=== PATIENT | female | born 1965 | race Caucasian/White ===

== ENCOUNTER 2017-05-04 13:25 | Emergency (ER) | payer OTHER ==
[2017-05-04] MEDS ORDERED: Aspirin Low Dose CHEW TAB* 81 MG PO ONE (14:44)
[2017-05-04 15:07] LABS: Hematocrit 39 % (35-47); Hemoglobin 13.5 g/dl (12.0-16.0); Mean Corpuscular HGB Conc 34 g/dl (31-36); Mean Corpuscular Hemoglobin 31 pg (27-31); Mean Corpuscular Volume 90 fL (80-97); Mean Platelet Volume 9 um3 (7.4-10.4); Red Blood Count 4.37 10^6/ul (4.0-5.4); Red Cell Distribution Width 13 % (10.5-15); White Blood Count 6.5 10^3/ul (3.5-10.8)
--- NOTE | 2017-05-04 15:07 | RAD ---
HISTORY: Chest pain COMPARISONS: None VIEWS: 1: frontal portable view of the chest at 2:50 PM FINDINGS: LINES AND TUBES: None. CARDIOMEDIASTINAL SILHOUETTE: The cardiomediastinal silhouette is normal for portable technique. PLEURA: The costophrenic angles are sharp. No pleural abnormalities are noted. LUNG PARENCHYMA: The lungs are clear. ABDOMEN: The upper abdomen is clear. There is no subphrenic gas. BONES AND SOFT TISSUES: No bone or soft tissue abnormalities are noted. IMPRESSION: NO ACTIVE CARDIOPULMONARY DISEASE.
[2017-05-04 15:28] LABS: Albumin 4.1 g/dL (3.2-5.2); BUN/Creatinine Ratio 13.8 (8-20); Calcium 8.9 mg/dL (8.6-10.3); EGFR Non-African American 76.2 (>60); Globulin 2.8 g/dL (2-4); Potassium 3.4 mmol/L (3.5-5.0); Total Bilirubin 0.8 mg/dL (0.2-1.0); Total Protein 6.9 g/dL (6.4-8.9)
[2017-05-04 15:57] LABS: T4 6.19 mcg/mL (6.09-12.23)
[2017-05-04 16:02] LABS: TSH (Thyroid Stimulating Horm) 2.5 mcIU/mL (0.34-5.60)
[2017-05-04 17:37] VITALS: BP 128/75
--- NOTE | 2017-05-05 02:18 | ED ---
Dora Pope Edward, scribed for Barbara Egan MD on 05/04/17 at 1336 . HPI Chest Pain - HPI Summary HPI Summary: 51 y/o female presents to the ED c/o CP described as a dull chest pressure starting as an intermittent CP a couple of weeks ago that became constant yesterday in the morning after waking up. The pressure is described as a dull weight on her chest. It is located in the mid-sternal region. Denies diaphoresis , N/V, pain in calves. Former smoker. Pt report recent stress at work. PMHx no HTN, no DM, no blood clots, no CA. FHx mother HTN, oldest brother had a valve replacement, father had a valve replacement and a pacemaker. PCP Dr. Fine. Sx hysterectomy 2 years ago and lumpectomy. NKDA. No medications. - History of Current Complaint Chief Complaint: EDChestPainROMI Hx Obtained From: Patient Onset/Duration: Started Weeks Ago, Worse Since - yesterday morning Timing: Constant - became constant yesterday morning, Intermittent Initial Severity: Moderate Current Severity: Moderate Pain Intensity: 4 Pain Scale Used: 0-10 Numeric Chest Pain Location: Mid Sternal Character: Dull/Aching, Pressure/Squeezing Aggravating Factor(s): Nothing Alleviating Factor(s): Nothing Associated Signs and Symptoms: Positive: Chest Pain, Shortness of Breath. Negative: Diaphoresis, Nausea, Vomiting - Allergy/Home Medications Allergies/Adverse Reactions: Allergies Allergy/AdvReac Type Severity Reaction Status Date / Time No Known Allergies Allergy Verified 03/01/14 08:20 PMH/Surg Hx/FS Hx/Imm Hx Previously Healthy: No Endocrine/Hematology History: Denies: Hx Bone Marrow Disease, Hx Diabetes, Hx Sickle Cell Disease, Hx Anemia Cardiovascular History: Denies: Hx Hypertension, Hx Pacemaker/ICD History: Denies: Hx Dialysis, Hx Renal Disease Sensory History: Reports: Hx Contacts or Glasses - WEARS CONTACTS, WILL WEAR GLASSES DOS Denies: Hx Cataracts, Hx Glaucoma, Hx Hearing Aid Opthamlomology History: Reports: Hx Contacts or Glasses - WEARS CONTACTS, WILL WEAR GLASSES DOS Denies: Hx Cataracts, Hx Glaucoma Psychiatric History: Denies: Hx Panic Disorder - Cancer History Hx Chemotherapy: No Hx Radiation Therapy: No - Surgical History Surgery Procedure, Year, and Place: 2011 LEFT LUMPECTOMY[place] [facility] [place] HYSTERECTOMY 2 YEARS AGO Hx Anesthesia Reactions: No Infectious Disease History: No Infectious Disease History: Denies: Traveled Outside the [place] in Last 30 Days - Family History Known Family History: Positive: Hypertension - Mother, Other - Brother - valve replacement, father - valve replacement and pacemaker - Social History Occupation: Employed Full-time Alcohol Use: Weekly Alcohol Amount: LESS THAN 7 BEERS /WEEK Substance Use Type: Reports: None Hx Tobacco Use: Yes Smoking Status (MU): Former Smoker Amount Used/How Often: 1/2 PPD FOR 15 YRS Length of Time of Smoking/Using Tobacco: 15 YRS Have You Smoked in the Last Year: No Review of Systems Constitutional: Negative Eyes: Negative ENT: Negative Positive: Chest Pain Positive: Shortness Of Breath Gastrointestinal: Negative Genitourinary: Negative Musculoskeletal: Negative Skin: Negative Neurological: Negative Psychological: Normal All Other Systems Reviewed And Are Negative: Yes Physical Exam - Summary Physical Exam Summary: Appearance: Well-appearing, no pain distress, Well-nourished Skin: Warm, color reflects adequate perfusion Head: Normal Head/Face Eyes: Conjunctiva clear ENT: Normal Neck: Supple Respiratory: Lungs clear, Normal breath sounds, no respiratory distress Cardio: RRR, No murmur, pulses normal, brisk capillary refill Abdomen: soft, nontender Bowel sounds: present Musculoskeletal: Strength Intact/ ROM intact Neuro: Alert, muscle tone normal, facial symmetry, speech normal, sensory/motor intact Triage Information Reviewed: Yes Vital Signs On Initial Exam: Initial Vitals Temp Pulse Resp BP Pulse Ox 99.1 F 71 19 157/89 100 05/04/17 13:28 05/04/17 13:28 05/04/17 13:28 05/04/17 13:28 05/04/17 13:28 Vital Signs Reviewed: Yes Diagnostics - Vital Signs Vital Signs Temp Pulse Resp BP Pulse Ox 05/04/17 13:28 99.1 F 71 19 157/89 100 - Laboratory Lab Results: Lab Results 05/04/17 05/04/17 05/04/17 Range/Units 14:58 14:58 14:58 WBC (3.5-10.8) 10^3/ul RBC (4.0-5.4) 10^6/ul Hgb (12.0-16.0) g/dl Hct (35-47) % MCV (80-97) fL MCH (27-31) pg MCHC (31-36) g/dl RDW (10.5-15) % Plt Count (150-450) 10^3/ul MPV (7.4-10.4) um3 Neut % (Auto) (38-83) % Lymph % (Auto) (25-47) % Dolores % (Auto) (1-9) % Eos % (Auto) (0-6) % Baso % (Auto) (0-2) % Absolute Neuts (auto) (1.5-7.7) 10^3/ul Absolute Lymphs (auto) (1.0-4.8) 10^3/ul Absolute Monos (auto) (0-0.8) 10^3/ul Absolute Eos (auto) (0-0.6) 10^3/ul Absolute Basos (auto) (0-0.2) 10^3/ul Absolute Nucleated RBC 10^3/ul Nucleated RBC % INR (Anticoag Therapy) 0.95 (0.89-1.11) D-Dimer, Quantitative < 200 (Less Than 230) ng/mL Sodium 140 (133-145) mmol/L Potassium 3.4 L (3.5-5.0) mmol/L Chloride 105 (101-111) mmol/L Carbon Dioxide 28 (22-32) mmol/L Anion Gap 7 (2-11) mmol/L BUN 11 (6-24) mg/dL Creatinine 0.80 (0.51-0.95) mg/dL Est GFR ( Amer) 98.0 (>60) Est GFR (Non-Af Amer) 76.2 (>60) BUN/Creatinine Ratio 13.8 (8-20) Glucose 83 (70-100) mg/dL Lactic Acid (0.5-2.0) mmol/L Calcium 8.9 (8.6-10.3) mg/dL Magnesium 2.0 (1.9-2.7) mg/dL Total Bilirubin 0.80 (0.2-1.0) mg/dL AST 15 (13-39) U/L ALT 10 (7-52) U/L Alkaline Phosphatase 40 (34-104) U/L Total Creatine Kinase 83 (10-223) U/L CK-MB (CK-2) 1.6 (0.6-6.3) ng/mL Troponin I 0.00 (<0.04) ng/mL B-Natriuretic Peptide 38 ( - 100) pg/mL Total Protein 6.9 (6.4-8.9) g/dL Albumin 4.1 (3.2-5.2) g/dL Globulin 2.8 (2-4) g/dL Albumin/Globulin Ratio 1.5 (1-3) TSH 2.50 (0.34-5.60) mcIU/mL Thyroxine (T4) 6.19 (6.09-12.23) mcg/mL 05/04/17 05/04/17 Range/Units 14:58 14:58 WBC 6.5 (3.5-10.8) 10^3/ul RBC 4.37 (4.0-5.4) 10^6/ul Hgb 13.5 (12.0-16.0) g/dl Hct 39 (35-47) % MCV 90 (80-97) fL MCH 31 (27-31) pg MCHC 34 (31-36) g/dl RDW 13 (10.5-15) % Plt Count 201 (150-450) 10^3/ul MPV 9 (7.4-10.4) um3 Neut % (Auto) 65.9 (38-83) % Lymph % (Auto) 27.0 (25-47) % Dolores % (Auto) 6.3 (1-9) % Eos % (Auto) 0.4 (0-6) % Baso % (Auto) 0.4 (0-2) % Absolute Neuts (auto) 4.3 (1.5-7.7) 10^3/ul Absolute Lymphs (auto) 1.7 (1.0-4.8) 10^3/ul Absolute Monos (auto) 0.4 (0-0.8) 10^3/ul Absolute Eos (auto) 0 (0-0.6) 10^3/ul Absolute Basos (auto) 0 (0-0.2) 10^3/ul Absolute Nucleated RBC 0 10^3/ul Nucleated RBC % 0 INR (Anticoag Therapy) (0.89-1.11) D-Dimer, Quantitative (Less Than 230) ng/mL Sodium (133-145) mmol/L Potassium (3.5-5.0) mmol/L Chloride (101-111) mmol/L Carbon Dioxide (22-32) mmol/L Anion Gap (2-11) mmol/L BUN (6-24) mg/dL Creatinine (0.51-0.95) mg/dL Est GFR ( Amer) (>60) Est GFR (Non-Af Amer) (>60) BUN/Creatinine Ratio (8-20) Glucose (70-100) mg/dL Lactic Acid 1.0 (0.5-2.0) mmol/L Calcium (8.6-10.3) mg/dL Magnesium (1.9-2.7) mg/dL Total Bilirubin (0.2-1.0) mg/dL AST (13-39) U/L ALT (7-52) U/L Alkaline Phosphatase (34-104) U/L Total Creatine Kinase (10-223) U/L CK-MB (CK-2) (0.6-6.3) ng/mL Troponin I (<0.04) ng/mL B-Natriuretic Peptide ( - 100) pg/mL Total Protein (6.4-8.9) g/dL Albumin (3.2-5.2) g/dL Globulin (2-4) g/dL Albumin/Globulin Ratio (1-3) TSH (0.34-5.60) mcIU/mL Thyroxine (T4) (6.09-12.23) mcg/mL Result Diagrams: 05/04/17 14:58 05/04/17 14:58 Lab Statement: Any lab studies that have been ordered have been reviewed, and results considered in the medical decision making process. - Radiology CXR Xray Interpretation: No Acute Changes - NO ACTIVE CARDIOPULMONARY DISEASE Radiology Interpretation Completed By: Radiologist - Additional Comments Diagnostic Additional Comments: EKG 13:29 - SR @ 76 BPM. NORMAL AV, IV AND QTC. NORMAL AXIS. INVERTED T WAVES IN V1-V4 COMPARED TO COPY OF EKG FROM [facility] AT 11:45 TODAY. Re-Evaluation - Re-Evaluation 1 Re-Evaluation Time: 17:15 Comment: Discuss plan to d/c Chest Pain Course/Dx - Course Assessment/Plan: 51 y/o female presents to the ED c/o CP described as a dull chest pressure starting as an intermittent CP a couple of weeks ago that became constant yesterday in the morning after waking up. The pressure is described as a dull weight on her chest. It is located in the mid-sternal region. Associated sx: mild SOB that is not present now. Denies diaphoresis, N/V, pain in calves. Former smoker. Pt report recent stress at work. PMHx no HTN, no DM, no blood clots, no CA. FHx mother HTN, oldest brother had a valve replacement, father had a valve replacement and a pacemaker. PCP Dr. Fine. Sx hysterectomy 2 years ago and lumpectomy. NKDA. No medications. EKG 13:29 - SR @ 76 BPM. NORMAL AV, IV AND QTC. NORMAL AXIS. INVERTED T WAVES IN V1-V4 COMPARED TO COPY OF EKG FROM [facility] AT 11:45 TODAY. CXR SHOWS NO ACTIVE CARDIOPULMONARY DISEASE. Discussed with Dr. Prince. Pt has a CORTNEY score of 0. Pt can be safely d/c home with f/u with Dr. Fine. - Diagnoses Provider Diagnoses: Elevated blood pressure reading without diagnosis of hypertension, Chest pain - Provider Notifications Discussed Care Of Patient With: Drew Prince Time Discussed With Above Provider: 17:00 Instructed by Provider To: Other - Pt can be d/c home Discharge - Discharge Plan Condition: Stable Disposition: HOME Patient Education Materials: Chest Pain (ED) Referrals: Robbin Fine MD [Primary Care Provider] - 2 Days (PLEASE F/U IN 2 DAYS) Additional Instructions: PLEASE RETURN TO THE ED FOR RETURN OF OR WORSENING SYMPTOMS The documentation as recorded by the Dora foss Edward accurately reflects the service I personally performed and the decisions made by , Barbara Egan MD.
== END 2017-05-04 17:36 | disposition home or self-care (01) ==
LOC: ED 13:25
DX: R03.0 Elevated blood-pressure reading, without diagnosis of hypertension (principal); R07.9 Chest pain, unspecified; R06.02 Shortness of breath; Z87.891 Personal history of nicotine dependence
CPT/HCPCS: 36415; 71010; 80053; 82550; 82553; 83605; 83735; 83880; 84436; 84443; 84484; 85025; 85379; 85610; 93005; 99285; A9270-GY

== ENCOUNTER 2017-05-07 11:04 | Observation (INO) | payer OTHER ==
--- NOTE | 2017-05-07 11:41 | RAD ---
HISTORY: Chest pain COMPARISONS: May 04, 2017 VIEWS: 1: frontal portable view of the chest at 11:20 AM FINDINGS: LINES AND TUBES: None. CARDIOMEDIASTINAL SILHOUETTE: The cardiomediastinal silhouette is normal for portable technique. PLEURA: The costophrenic angles are sharp. No pleural abnormalities are noted. LUNG PARENCHYMA: The lungs are clear. ABDOMEN: The upper abdomen is clear. There is no subphrenic gas. BONES AND SOFT TISSUES: No bone or soft tissue abnormalities are noted. IMPRESSION: NO ACTIVE CARDIOPULMONARY DISEASE.
--- NOTE | 2017-05-07 11:41 | ED ---
HPI Chest Pain - HPI Summary HPI Summary: Patient is an otherwise healthy 51yp who presents from her PCP office with substernal chest pain present x 2 weeks which previously was intermittent, has been constant since Thursday afternoon (4 days ago). She describes the discomfort as a substernal crushing tightness across her chest with numbness in the bilateral axillas. Rated a 5/10 and worse when arriving home at night or walking long distances. Family history includes father and brother both with valve replacements and HTN. Denies personal cardiac history. She takes no medications and has been otherwise healthy. She was seen on 05/04/17 at [facility] and sent here for workup. EKG and labs all WNL. She was discharged home after normal results and she was to follow up with her PCP. Today on her PCP visit, PCP noticed EKG changes from 2 days ago, coupled with persistent chest pain, sent her here for further evaluation. Her EKG in the hospital shows inverted T waves in V2-V3 and ST depression in V4 with biphasic T waves that could be consistent with ischemia. She denies any SOB or orthopnea. Denies palpitations. No hx of anxiety, but states she has been more anxious in the last few months. PMH includes hysterectomy in 2015 and lumpectomy of the the left breast (benign.) Ex smoker. Today, her PCP Dr. Michel reached out to Dr. Rodgers who suggested she come to the ED for further workup. Trop level in office today 0.00. Denies N/V/C/D. Denies FITZGERALD, visual changes or FITZGERALD. - History of Current Complaint Chief Complaint: EDChestPainROMI Time Seen by Provider: 05/07/17 11:17 Hx Obtained From: Patient Onset/Duration: Started Weeks Ago Timing: Constant Current Severity: Moderate Pain Intensity: 3 Pain Scale Used: 0-10 Numeric Chest Pain Location: Diffuse - substernal across chest Chest Pain Radiates: No Character: Dull/Aching, Heaviness, Tightness Aggravating Factor(s): Exertion Alleviating Factor(s): Nothing Associated Signs and Symptoms: Positive: Recent Stress. Negative: Vision Changes, Weakness, Shortness of Breath, Chills, Lightheadedness, Calf Pain/ Swelling - Risk Factors Pulmonary Embolism Risk Factors: Negative TAD Risk Factors: Negative AMI/ACS Risk Factors: Family History - Allergy/Home Medications Allergies/Adverse Reactions: Allergies Allergy/AdvReac Type Severity Reaction Status Date / Time No Known Allergies Allergy Verified 03/01/14 08:20 PMH/Surg Hx/FS Hx/Imm Hx Previously Healthy: Yes Endocrine/Hematology History: Denies: Hx Bone Marrow Disease, Hx Diabetes, Hx Sickle Cell Disease, Hx Anemia Cardiovascular History: Denies: Hx Hypertension, Hx Pacemaker/ICD History: Denies: Hx Dialysis, Hx Renal Disease Sensory History: Reports: Hx Contacts or Glasses - WEARS CONTACTS, WILL WEAR GLASSES DOS Denies: Hx Cataracts, Hx Glaucoma, Hx Hearing Aid Opthamlomology History: Reports: Hx Contacts or Glasses - WEARS CONTACTS, WILL WEAR GLASSES DOS Denies: Hx Cataracts, Hx Glaucoma Psychiatric History: Denies: Hx Panic Disorder - Cancer History Hx Chemotherapy: No Hx Radiation Therapy: No - Surgical History Surgery Procedure, Year, and Place: 2011 LEFT LUMPECTOMY- [facility] – [place]. HYSTERECTOMY 2 YEARS AGO Hx Anesthesia Reactions: No Infectious Disease History: No Infectious Disease History: Denies: Traveled Outside the [place] in Last 30 Days - Family History Known Family History: Positive: Hypertension - Mother, Other - Brother - valve replacement, father - valve replacement and pacemaker - Social History Occupation: Employed Full-time Lives: With Family Alcohol Use: Weekly Alcohol Amount: LESS THAN 7 BEERS /WEEK Hx Substance Use: No Substance Use Type: Reports: None Hx Tobacco Use: Yes Smoking Status (MU): Former Smoker Amount Used/How Often: 1/2 PPD FOR 15 YRS Length of Time of Smoking/Using Tobacco: 15 YRS Have You Smoked in the Last Year: No Review of Systems - ROS Summary Review of Systems Summary: Constitutional: The patient denies fever, FITZGERALD. HEENT: Head: The patient denies headaches or dizziness. Eyes: The patient denies diplopia, blurry vision, eye pain, eye discharge, photophobia. Throat: The patient denies sore throats or hoarseness. Cardiovascular: The patient endorses chest pain as an aching, crushing. Denies palpitations, syncope, night cramps, or orthostasis. Respiratory: The patient denies cough, sputum production, hemoptysis, dyspnea, wheezing. Gastrointestinal: The patient denies odynophagia, dysphagia, hematemesis, melenemesis. Denies abdominal pain, nausea or vomiting. Denies constipation or diarrhea. Genitourinary: Patient denies dysuria, hematuria, or pyuria. Patient denies back pain. Denies vaginal discharge, vaginal bleeding. Denies other urinary symptoms. Endocrine: The patient denies polydipsia, polyuria, or polyphagia. Muscles: The patient denies myalgia, strain or weakness. Joints: The patient denies arthralgia and/or arthritis. Neurologic: The patient denies headache, loss of consciousness, or seizure. Dermatologic: The patient denies hyperpigmentation, rash, or photosensitivity. Constitutional: Negative Negative: Fever, Chills, Fatigue Eyes: Negative Positive: Chest Pain. Negative: Palpitations Negative: Shortness Of Breath, Cough Negative: Abdominal Pain, Vomiting, Diarrhea, Nausea Positive: no symptoms reported, see HPI Musculoskeletal: Negative Neurological: Negative Positive: Anxious All Other Systems Reviewed And Are Negative: Yes Physical Exam - Summary Physical Exam Summary: Appearance: WDW, comfortable, pleasant, alert Skin: Soft dry skin, no lesions. Nailbeds pink with no cyanosis or clubbing. No petechia noted. Eyes: LITTLE, EOMI, Conjunctiva pink with no redness or exudates. Mouth: Dentition without lesions. Moist mucosa Neck: Full range of motion. Palpable thyroid. Trachea at midline. No lymphadenopathy. Pulm: Chest symmetrical expansion. No deformities on posterior chest wall. Lungs clear to auscultation and percussion, without adventitious sounds. CV: No JVD. No deformities on anterior chest wall. Heart soundsRRR, Normal S1 and single S2. No S3, S4, rubs, or murmurs. Carotids 2+ bilaterally without bruits. . exam not performed Musculoskeletal: Flexion and extension of neck limited d/t pain. Brudzynski and Kernig sign negative. No deformities noted. Pulses full and equal. Neuro: Motor strength is 5/5 in upper and lower extremities bilaterally. A&OX3 Psych: Logical, coherent Triage Information Reviewed: Yes Vital Signs On Initial Exam: Initial Vitals Temp Pulse Resp BP Pulse Ox 99 F 73 16 170/82 96 05/07/17 11:06 05/07/17 11:06 05/07/17 11:06 05/07/17 11:06 05/07/17 11:06 Vital Signs Reviewed: Yes Appearance: Positive: Well-Appearing, Well-Nourished Skin: Positive: Warm, Skin Color Reflects Adequate Perfusion Head/Face: Positive: Normal Head/Face Inspection Eyes: Positive: EOMI, LITTLE, Conjunctiva Clear Neck: Positive: Supple, Nontender, No Lymphadenopathy Respiratory/Lung Sounds: Positive: Clear to Auscultation, Breath Sounds Present Cardiovascular: Positive: Normal, RRR, Pulses are Symmetrical in both Upper and Lower Extremities. Negative: Leg Edema Left, Leg Edema Right Abdomen Description: Positive: Nontender, No Organomegaly, Soft Musculoskeletal: Positive: Normal, Strength/ROM Intact Neurological: Positive: Normal, Sensory/Motor Intact, Alert, Oriented to Person Place, Time Psychiatric: Positive: Normal AVPU Assessment: Alert Diagnostics - Vital Signs Vital Signs Temp Pulse Resp BP Pulse Ox 05/07/17 11:06 99 F 73 16 170/82 96 - Laboratory Result Diagrams: 05/07/17 11:34 05/07/17 11:34 Lab Statement: Any lab studies that have been ordered have been reviewed, and results considered in the medical decision making process. Chest Pain Course/Dx - Course Course Of Treatment: Patient evaluated for chest pain. She was seen 2 days ago and discharged home after negative workup. Today she returns sent from her PCP after persistent chest pain and EKG changes. She notes to chest pain at this time and has not taken any medication for relief She denies SOB. Dr. Rodgers called by Dr. Michel who suggested she return for further evaluation. Hospitalist called at 12:15pm. Discussed with patient findings and plan and she is OK with plan to admit. - Chest Pain Differential Diagnosis/HQI/PQRI: Acute WI, ACS - Diagnoses Provider Diagnoses: Chest pain Discharge - Discharge Plan Condition: Stable Disposition: ADMITTED TO [facility]
[2017-05-07 11:57] LABS: Hematocrit 45 % (35-47); Mean Corpuscular HGB Conc 33 g/dl (31-36); Mean Corpuscular Hemoglobin 31 pg (27-31); Mean Corpuscular Volume 92 fL (80-97); Mean Platelet Volume 9 um3 (7.4-10.4); Red Cell Distribution Width 13 % (10.5-15); White Blood Count 6.8 10^3/ul (3.5-10.8)
[2017-05-07 12:39] LABS: Albumin 4.5 g/dL (3.2-5.2)
[2017-05-07 12:40] LABS: BUN/Creatinine Ratio 19.8 (8-20); EGFR African American 96.7 (>60); EGFR Non-African American 75.2 (>60); Globulin 3.3 g/dL (2-4); Potassium 3.7 mmol/L (3.5-5.0); Total Protein 7.8 g/dL (6.4-8.9)
[2017-05-07 12:54] LABS: Total Bilirubin 0.7 mg/dL (0.2-1.0)
[2017-05-07] MEDS ORDERED: Acetaminophen TAB* 325 MG PO PRN (13:15)
[2017-05-07] MEDS ORDERED: Aspirin TAB* 325 MG PO SCH (14:00)
--- NOTE | 2017-05-07 15:59 | HP ---
CC: Dr. Rebolledo; Dr. Fine * HISTORY AND PHYSICAL: DATE OF ADMISSION: 05/07/17 PRIMARY CARE PROVIDER: Dr. Rebolledo. CHIEF COMPLAINT: Chest pain. HISTORY OF PRESENT ILLNESS: Ms. Walton is a 51-year-old female with no significant past medical history, who presented complaining of chest pain. The patient states that she has had chest pains occasionally off and on for the past 2 weeks. For the past 4 days, they had been constant. She describes it as a band across the front of her lower chest. 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 She also has dyspnea on exertion for the past couple of weeks. She came into the ED for evaluation on 05/04/17. At that point, her troponins were unremarkable, but her EKG showed negative T waves in leads V1 through V4 and some ST depressions in lateral leads. The patient stated that she was advised to go to see her primary care provider for further evaluation. At Dr. Rebolledo's office today, the patient's EKG showed normalization of the previous changes. Dr. Rebolledo sent the patient to the ED for evaluation due to dynamic changes in the EKG that currently resolved. The patient currently stated that she still has some discomfort in her chest. She cannot rate it as pain per se. She is otherwise comfortable. Her initial workup included troponin of 0 and EKG that was grossly unremarkable. She is going to be admitted for overnight observation with diagnosis of chest pain to rule out ischemia, for a stress test in the morning. PAST MEDICAL HISTORY: 1. History of hysterectomy for fibroid uterus. 2. History of benign breast lumpectomy on the left. MEDICATIONS: None. ALLERGIES: No known drug allergies. FAMILY HISTORY: Positive for mother with history of colon cancer, who at age of 76. Father secondary to esophageal cancer at the age of 73, but had problems with heart and had pacemaker and a valve replacement at some point. SOCIAL HISTORY: The patient is half a pack of cigarette per day smoker and she quit 10 years ago. She denies any alcohol or drug use. 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 She is and her would be her healthcare proxy. REVIEW OF SYSTEMS: Please see history of present illness. Specifically, the patient stated that the chest pain really does not have any precipitating factors or any alleviating factors. She feels slight discomfort. She states that when she is usually some kind of activity, she feels it more. For the past few days, the pain was nearly constant. All the remaining 14 systems were reviewed with the patient and were otherwise negative. PHYSICAL EXAMINATION GENERAL: The patient is a pleasant is a 51-year-old female, who is in no acute distress. Alert, awake, and oriented x3. VITAL SIGNS: Blood pressure of 139/85, heart rate of 58 and regular, respiratory rate 20, oxygen saturation 100% on room air, temperature of 99.0. HEENT: Head: Atraumatic, normocephalic. Eyes: Pupils equal and reactive to light and accommodation. Oropharynx clear. Mucosa moist. NECK: Supple. No JVD, no bruits bilaterally. RESPIRATORY: Clear to auscultation bilaterally. CARDIOVASCULAR: Regular rate and rhythm. No murmur. ABDOMEN: Soft, nontender. Bowel sounds present in all 4 quadrants. EXTREMITIES: There is no edema. Pulses +2 bilaterally. No clubbing or cyanosis. NEUROLOGIC: Speech clear. Cranial nerves II through XII grossly intact. Motor strength is 5/5 bilaterally. PSYCHIATRIC: Oriented x3 with no evidence of anxiety or depression. SKIN: On evaluation of the skin, no ecchymotic areas or rashes noted. DIAGNOSTIC STUDIES/LAB DATA: On 05/07/17, sodium of 136, potassium 3.7, chloride 104, carbon dioxide 18, anion gap of 14, BUN 16, creatinine 0.81. Liver function tests unremarkable. Troponin of 0. The patient's brain natriuretic peptide was obtained on 05/04/17 and was 38. The patient's C-reactive protein is pending. The patient's troponin on was also 0 as well as TSH was also unremarkable at 2.5. D-dimer was negative today. Portable chest x-ray, impression: "No active cardiopulmonary disease." The patient's EKG showed sinus rhythm with a heart rate of 61 beats per minute with no ST changes. ASSESSMENT AND PLAN: 1. A 51-year-old female with no significant past medical history, who presented complaining of chest pain; it could be related to angina. The patient had dynamic changes in her EKG noted 3 days ago that by now resolved. The patient is going to be admitted on overnight observation, treated with aspirin, and an cardiac stress test is going to be performed in the morning. 2. For DVT prophylaxis, the patient is a low risk and is ambulatory. 3. Code status. The patient is full code and her surrogate is her . TIME SPENT: Approximately 62 minutes was spent on admission of this patient, more than half the time was spent [id number] with the patient during the interview and physical exam. [id number]/[facility] #: [id number] LOBO
[2017-05-08 05:40] LABS: HDL Cholesterol 49.4 mg/dL
[2017-05-08 12:54] VITALS: BP 115/77
--- NOTE | 2017-05-08 13:10 | RAD ---
Edited for charges. INDICATION: Chest pain COMPARISON: Chest x-ray May 04, 2017 TECHNIQUE: SPECT imaging was performed. Rest images were acquired following the intravenous injection of 10.99 millicuries of technetium 99m tetrofosmin at 0625 hours. At 1126 hours stress images were acquired following the intravenous administration of 25 millicuries of technetium 99m tetrofosmin. FINDINGS: There are no defects of the stress-induced or fixed nature. The cardiac chamber size is normal. There are no wall motion abnormalities. The ejection fraction is calculated at 60% during stress. IMPRESSION: No scintigraphic evidence of ischemia or infarction. ASSESSMENT: Low risk MTDD
--- NOTE | 2017-05-09 01:47 | DS ---
CC: Dr. Fine; Dr. Rebolledo * DISCHARGE SUMMARY: DATE OF ADMISSION: 05/07/17 DATE OF DISCHARGE: 05/08/17 DISCHARGE DIAGNOSIS: Chest pain of likely noncardiac origin with low probability cardiac stress test documented on the day of discharge. MEDICATIONS AT DISCHARGE: None. FOLLOWUP APPOINTMENT RECOMMENDED: Following up with Dr. Rebolledo in approximately 4 to 7 days. LABORATORY DATA DURING THE HOSPITAL STAY: In addition to the laboratory data reported at admission, the patient's ESR was 15, D-dimer was below 200. The patient's total cholesterol was 169, triglycerides 92, LDL of 101, and HDL of 49. The patient's troponins were 0 throughout the hospital stay duration. C- reactive protein was 1.18. PHYSICAL EXAM AT THE TIME OF DISCHARGE: Unchanged from admission. HOSPITALIZATION COURSE: Melony Walton is a 51-year-old female who has had problems with increased stress at work and sensation of chest pressure mostly when she gets stressed out at work for the past several weeks. She came into the ED for evaluation and she had no specific ST changes on 05/04/17. At that point, she was sent home. She came back to Dr. Rebolledo's office on 05/07/17 and was referred to the ED for repeat evaluation and at that point she was admitted for a stress test. Her stress test was reported as "there were no defects of stress induced or fixed nature. The cardiac chamber size is normal. There are no wall motion abnormalities. The ejection fraction is calculated at 60% during stress." The patient is going to be discharged home. The cause of the chest pain is unknown. Further possibilities of GI origin, musculoskeletal origin, or psychogenic need to be considered. [id number]/[facility] #: [id number] MTDD
== END 2017-05-08 14:15 | disposition home or self-care (01) ==
LOC: ED 11:04 → MEDTELE 12:27
PROVIDERS: ADMIT Internal Medicine; ATTEND Internal Medicine
DX: R07.9 Chest pain, unspecified (principal); Z87.891 Personal history of nicotine dependence; R00.1 Bradycardia, unspecified
CPT/HCPCS: 36415; 71010; 78452; 80053; 80061; 83605; 83874; 83880; 84484; 85025; 85379; 85652; 86141; 93005; 93017; 99283; A9502; G0378

== ENCOUNTER 2019-09-26 05:24 | Day surgery (SDC) | payer OTHER ==
--- NOTE | 2019-09-09 08:39 | HP ---
CC: Dr. Fine; Dr. Florence ADMITTING HISTORY AND PHYSICAL: DATE OF ADMISSION: 09/26/19 DIAGNOSIS: Right ureteropelvic junction calculus. PLANNED PROCEDURE: Right stent insertion and shockwave lithotripsy of right renal calculus. SURGEON: Dr. Florence. ADMITTING HISTORY AND PHYSICAL: Melony Walton is a 54-year-old lady who has had intermittent right u pper quadrant and right flank pain for several months. She was evaluated and noted to have an approx imately 9 mm calculus in the right renal pelvis with mild pelvocaliectasis. She is now being brought in for treatment of a calculus. PAST MEDICAL HISTORY: Unremarkable. PAST SURGICAL HISTORY: Significant for hysterectomy and removal of benign left breast lump. Smoking history: She is a former smoker, who quit 10 years ago and has a 20-pack year smoking history prior to that. MEDICATIONS ON ADMISSION: None. ALLERGIES: No known drug allergies. FAMILY HISTORY: Negative for stones. REVIEW OF SYSTEMS: She is otherwise in excellent health. There is no history of diabetes mellitus o r any other major systemic illness. PHYSICAL EXAMINATION GENERAL: Reveals a pleasant, healthy-appearing middle-aged lady. VITAL SIGNS: Blood pressure is 130/80, pulse 61 per minute, temperature 97.7, oxygen saturation 98% on room air. LUNGS: Clear bilaterally. CARDIOVASCULAR: Regular rate and rhythm. S1, S2. ABDOMEN: Soft with mild right flank tenderness. IMPRESSION: A 54-year-old lady with a 9 mm calculus in the area of the right renal pelvis. PLAN: Planned procedure is right stent insertion and shockwave lithotripsy of right renal calculus. [id number]/[facility] #: [id number]
[~2019-09-26 05:24] MED LIST: Buffered Lidocaine 1% SYRIN* 1 ML/SYRINGE INTRADERM ONE
[2019-09-26] MEDS ORDERED: Lactated Ringers 1000 ML Bag* 1,000 ML IV SCH (06:00)
[2019-09-26] MEDS ORDERED: Famotidine IV* 10 MG/ML 2 ML (20 mg) IV ONE (06:00)
[2019-09-26] MEDS ORDERED: Dexamethasone IV* 4 MG/ML 1 ML (4 MG) IV SLOW PU ONE (06:00)
[2019-09-26] MEDS ORDERED: cefTRIAXone(*) 2 GM ADDV.VIAL IVPB ONE (06:10)
[2019-09-26] MEDS ORDERED: Dexamethasone IV* 4 MG/ML 1 ML (4 MG) ONE ×2 (06:10→06:30)
[2019-09-26] MEDS ORDERED: Famotidine IV* 10 MG/ML 2 ML (20 mg) ONE (06:11)
[2019-09-26] MEDS ORDERED: Ketorolac INJ* 30 MG/ML 1 ML VIAL ONE (06:30)
[2019-09-26] MEDS ORDERED: EPHEDrine (Pressors)* 50 MG/ML VIAL ONE (06:30)
[2019-09-26] MEDS ORDERED: fentaNYL* 50 MCG/ML 2 ML VIAL (100 MCG VIAL) ONE (06:30)
[2019-09-26] MEDS ORDERED: Glycopyrrolate IV* 0.2 MG/ML 1 ML VIAL ONE (06:30)
[2019-09-26] MEDS ORDERED: Succinylcholine* 20 MG/ML 10 ML VIAL ONE (06:30)
[2019-09-26] MEDS ORDERED: Lidocaine 2% PF * 5 ML VIAL ONE (06:30)
[2019-09-26] MEDS ORDERED: Ondansetron INJ* 2 MG/ML VIAL ONE (06:30)
[2019-09-26] MEDS ORDERED: Propofol* 10 MG/ML 20 ML BTL ONE (06:30)
[2019-09-26] MEDS ORDERED: Midazolam* 1 MG/ML 2 ML VIAL (2 MG) ONE (06:33)
[2019-09-26] MEDS ORDERED: Naloxone* 0.4 MG/ML 1 ML VIAL IV PRN (07:03)
[2019-09-26] MEDS ORDERED: oxyCODONE/Acetamin 5/325 MG* TAB PO PRN (07:03)
[2019-09-26] MEDS ORDERED: Iohexol 180 (CONTRAST) 10 ML SDV IV ONE (07:33)
[2019-09-26] MEDS ORDERED: Sevoflurane* BOTTLE ONE (08:16)
[2019-09-26 09:35] VITALS: BP 114/83
--- NOTE | 2019-09-26 23:00 | OP ---
CC: Dr. Fine * DATE OF OPERATION: 09/26/19 - [facility] DATE OF : 69 SURGEON: Antonio Alberts MD ANESTHESIOLOGIST: Dr. Hill. ANESTHESIA: General. PRE-OP DIAGNOSIS: Right ureteropelvic junction calculus (1 cm). POST-OP DIAGNOSIS: Right ureteropelvic junction calculus (1 cm). OPERATIVE PROCEDURE: 1. Cystoscopy. 2. Right retrograde pyelography and insertion of right ureteral stent (1 cm). 3. Shock wave lithotripsy of right renal calculus (1 cm). INDICATIONS: Ms. Walton is a 54-year-old white female who has had recurrent episodes of right flank pain and who was noted on renal imaging to have a 1-cm partially obstructing calculus at the right ureteropelvic junction. No other abnormal calcifications were noted. Because of the size of the stone and its location, the patient is being admitted for the above procedure. PATHOLOGY: Preoperative KUB showed the radiopaque calculus to be at the level of the right ureteropelvic junction. At fluoroscopy in the OR, the stone was noted to have migrated into the lower pole calyx. Cystoscopy showed normal-looking bladder wall without any suspicious lesions. Moderate right hydronephrosis was noted on retrograde pyelography. DESCRIPTION OF PROCEDURE: After successful general anesthesia, the patient was placed in the lithotomy position and was prepped and draped for cystoscopy. Cystoscopy was performed. The bladder was carefully inspected and the above findings were noted. A flexible tip Hybrid guidewire was introduced into the right orifice under fluoroscopic guidance. At fluoro, the calculus was seen to have migrated into the lower pole calyx. Right retrograde pyelography was performed demonstrating the right hydronephrosis. A size 6-Montserratian stent was then placed with the proximal end coiling in the renal pelvis and the distal end coiling inside the bladder. The cystoscope was removed and a 16-Montserratian Blackwood catheter was passed inside the bladder and the balloon inflated with 10 cc of water. The Blackwood catheter was placed to promote the drainage of the contrast from the right kidney to allow adequate visualization of the calculus. The patient was then placed in the supine position on the SWL table. The right renal calculus was visualized in both the PA and the oblique x-ray views and the position of the patient and of the generator were adjusted to have the stone in the focus of the shock waves. A total of 2,000 shocks were then delivered at a rate of 60 shocks per minute. A 3- minute break was taken after the initial 300 shocks to decrease the risk of renal injury. The proper positioning of the generator and the fragmentation of the stone were monitored periodically. At the completion of the treatment the stone has fragmented very well. The patient tolerated the procedure and left the operating room in good condition. The plan is to obtain a KUB before the patient's discharge. The patient will be seen in the office next week for renal ultrasound and for stent removal. [id number]/[facility] #: [id number] LOBO
== END 2019-09-26 10:00 | disposition home or self-care (01) ==
LOC: OR 05:24
PROVIDERS: ATTEND Urology
DX: N13.2 Hydronephrosis with renal and ureteral calculous obstruction (principal); Z87.891 Personal history of nicotine dependence
CPT/HCPCS: 74018; C1876; J0330; J0696; J1100; J1885; J2250; J2405; J2704; J3010